=== PATIENT | female | born 1990 | race Asian ===

== ENCOUNTER 2016-12-11 20:39 | Emergency (ER) | payer OTHER ==
[~2016-12-11] VITALS: Ht 170.2 cm; Wt 58.5 kg
[2016-12-11 21:23] VITALS: BP 1110/80; TEMP 98
== END 2016-12-11 21:26 | disposition home or self-care (01) ==
LOC: ED 20:39
PROC: 0U9MXZZ Drainage of Vulva, External Approach (ICD-10-PCS; principal; 2016-12-11)
DX: N76.4 Abscess of vulva (principal); W45.8XXA Other foreign body or object entering through skin, initial encounter
CPT/HCPCS: 99283

== ENCOUNTER 2018-02-25 21:50 | Emergency (ER) | payer OTHER ==
[~2018-02-25] VITALS: Ht 170.2 cm; Wt 63.5 kg
[2018-02-26 00:30] VITALS: BP 112/72; TEMP 97.1
== END 2018-02-26 00:30 | disposition home or self-care (01) ==
LOC: ED 21:50
DX: J40 Bronchitis, not specified as acute or chronic (principal)
CPT/HCPCS: 94664; 99283